=== PATIENT | female | born 1985 | race Caucasian/White ===

== ENCOUNTER 2024-02-17 16:53 | Emergency (ER) | payer OTHER, SELFPAY ==
[2024-02-17] VITALS (10 sets, daily range): BP systolic 116–156; BP diastolic 48–93; PULSE 76–104; RESP 12–22; TEMP 36.3–37.3; O2SAT 93–100; BMI 67.4
--- NOTE | ~2024-02-17 | XR_ITS ---
EXAMINATION: Left knee CLINICAL INFORMATION: Possible dislocation. Pain. COMPARISON: None. TECHNIQUE: 2 views of the left knee FINDINGS: There is one full shaft width anterior displacement of the tibia relative to the femur. No displaced fracture is evident. XR/XR knee LT 2V IMPRESSION: Anterior dislocation of the knee. Electronically signed by: Alfa Zuniga MD 02/17/2024 06:53 PM EDT RP
--- NOTE | ~2024-02-17 | CT_ITS ---
EXAMINATION: CT ANGIOGRAM LEFT LOWER EXTREMITY. CLINICAL INFORMATION: Status post knee dislocation and reduction. COMPARISON: None available. TECHNIQUE: Contiguous axial CT angiography of the left lower extremity obtained after the intravenous administration of 85 mL Omnipaque 350. Sagittal and coronal images also obtained. This CT examination was performed using dose optimization techniques as appropriate, variously including the following: *Automated exposure control *Adjustment of mA and/or kV according to patient size (this includes techniques or standardized protocols for targeted exams where dose is matched to indication/reason for exam; i.e. extremities or head) *Use of iterative reconstruction technique DLP: 980 mGy-cm FINDINGS: Intrapelvic structures are unremarkable. The external iliac arteries are patent. The left femoral artery, deep femoral artery as well as superficial femoral arteries are patent. No flow is demonstrated within the left popliteal artery. There is recanalization of the very distal left popliteal artery and trifurcation vessels extending to the left foot. The right lower extremity arterial system is within normal limits throughout. OSSEOUS STRUCTURES AND SOFT TISSUES: There is depression along the anterior medial femoral condyle associated with some lucencies and small bony densities along the anterior medial femoral condyle. The patella lies laterally within the patellofemoral groove. There is a lucency through the central anterior tibia at the level of the tibial spine. There is a mildly displaced fracture through the tip of the radial head. There is soft tissue swelling about the knee and a moderate knee joint effusion. CT/CT angio LE LT IMPRESSION: 1. Occlusion of the left popliteal artery with recanalization of the very distal popliteal artery and trifurcation vessels extending to the foot. 2. Fracture through the anterior medial femoral condyle, anterior tibia and tip of the radial head. 3. Lateral displacement of the patella. 4. Joint effusion and soft tissue swelling about the knee. Electronically signed by: Ariel Treviño MD 02/18/2024 04:29 AM EDT
--- NOTE | 2024-02-17 17:05 | ED.GENADULT ---
HPI - General Adult General Chief complaint: Fall Stated complaint: Fall, headstrike Time Seen by Provider: 02/17/24 17:04 Source: patient and EMS Mode of arrival: EMS Limitations: no limitations History of Present Illness ED Provider: Patricia Wallace PA-C HPI narrative: Patient is a 38 year old assigned female at with no reported medical history presenting to the emergency department today with left knee pain after a slip and fall. Patient states that she was at work when she slipped and fell on a banana peel and injured her left knee. Patient states that she did bump her head but did not have any loss of consciousness. Patient denies any dizziness, lightheadedness, abdominal pain, nausea, vomiting, fever, chills, blurry vision, double vision, loss of vision, chest pain, difficulty breathing, shortness of breath, back pain, night sweats, pain with urination, increased urinary frequency, increased urinary urgency, blood in her urine or stool, syncope or a near syncopal episode, bowel incontinence, bladder incontinence, or any other complaints at this time. Location: left and lower extremity Relieving factors: immobilization Exacerbating factors: movement Associated symptoms: denies other symptoms Treatments prior to arrival: none Related Data Allergies Allergy/AdvReac Type Severity Reaction Status Date / Time No Known Allergies Allergy Verified 02/17/24 17:06 Review of Systems Constitutional: Constitutional: Reports no additional constitutional complaints, Denies chills, Denies fever(s) and Denies night sweats Eyes: Eyes: Reports no additional eye complaints, Denies blurry vision, Denies change in vision, Denies diplopia, Denies eye discharge, Denies loss of vision and Denies eye pain ENT: Denies dizziness Cardiovascular: Cardiovascular: Reports no additional cardiovascular complaints, Denies chest pain, Denies lightheadedness, Denies Loss of Consciousness and Denies dyspnea Respiratory: Respiratory: Reports no additional respiratory complaints and Denies dyspnea Gastrointestinal: Gastrointestinal: Reports no additional gastrointestinal complaints, Denies abdominal pain, Denies melena, Denies hematochezia, Denies change in bowel habits and Denies change in stool character Genitourinary: Genitourinary: Denies hematuria, Denies urinary frequency, Denies dysuria, Denies urinary incontinence, Denies urinary hesitancy and Denies urinary urgency Musculoskeletal: Musculoskeletal: Reports no additional musculoskeletal complaints, Denies numbness and Denies tingling Comments: left knee pain Neurologic: Denies dizziness, Denies loss of vision, Denies numbness and Denies tingling Psychiatric: Psychiatric: Reports no additional psychiatric complaints Endocrine: Endocrine: Reports no additional endocrine complaints Hematologic/Lymphatic: Hematologic/Lymphatic: Reports no additional hematologic/lymphatic complaints Allergic/Immunologic: Allergic/Immunologic: Reports no additional allergic/immunologic complaints PMFSH Past Medical History Attestation statement: The following information was validated with the patient. Source: old records reviewed and nursing notes reviewed Medical History (Updated 02/18/24 @ 04:59 by Roberto Echeverria MD) Morbid obesity Physical Exam ED Vital Signs: Vital Signs - 24 hr 02/17/24 17:05 02/17/24 17:31 02/17/24 18:04 Temperature 97.7 F 98.1 F Pulse Rate 96 97 Respiratory Rate 18 22 H 18 Blood Pressure 156/48 H 156/48 H Pulse Oximetry 98 100 Oxygen Delivery Method Room Air Room Air 02/17/24 18:33 02/17/24 19:28 02/17/24 19:33 Temperature 99.2 F 97.7 F Pulse Rate 95 100 104 H Respiratory Rate 20 17 18 Blood Pressure 140/80 H 134/78 132/84 Pulse Oximetry 100 98 99 Oxygen Delivery Method Room Air Room Air Room Air 02/17/24 19:38 02/17/24 19:43 02/17/24 20:22 Temperature 97.3 F 98.0 F Pulse Rate 103 H 101 H 92 Respiratory Rate 18 18 12 Blood Pressure 116/87 129/84 142/66 H Pulse Oximetry 99 99 97 Oxygen Delivery Method Room Air Room Air Room Air 02/17/24 22:26 02/18/24 02:50 Temperature 97.9 F 98.5 F Pulse Rate 104 H 74 Respiratory Rate 14 16 Blood Pressure 154/93 H 174/76 H Pulse Oximetry 93 98 Oxygen Delivery Method Room Air Room Air BMI result Body Mass Index 67.4 Const General: cooperative, no acute distress, alert and awake Nutritional Appearance: well nourished Orientation/consciousness: patient oriented x3 Limitations: no limitations HENMT Head: Yes normal to inspection and Yes atraumatic Ears: hearing grossly normal bilaterally and external ears normal General nose exam: Normal external nose present, no nasal discharge noted and no epistaxis Face and sinus: Yes normal facial exam, No abrasion and No laceration Mouth: Normal oral and palatal mucosa present, no drooling and no muffled voice Eyes General: appearance normal, both eyes and all related structures Periorbital: periorbital findings normal Eyelids: Yes eyelids normal Conjunctivae: conjunctivae normal Pupils: Equal, round and reactive pupils present EOM: EOMs intact bilaterally Neck Neck: Yes normal visual inspection, Yes full ROM and Yes no lymphadenopathy Chest Chest palpation & inspection: normal inspection of the chest Resp Effort & Inspection: normal respiratory effort and able to speak in complete sentences GI Inspection: Yes normal to inspection Neuro General: patient oriented x3 and moves all extremities Cranial nerves: Yes Equal, round and reactive pupils present Cognition (Neuro): normal cognition Extrem Other: pain with left knee ROM inability to flex left knee left lower extremity shortened when compared to right General: Yes capillary refill normal Psych Appearance: grossly normal Mental Status: mental status grossly normal Affect: normal affect Attitude: cooperative Thought process: Normal thought process present Thought content: Normal thought content present Insight: Good insight present (Psych) Course Course Course Narrative: Dr. Tucker: -patient was taken to the OR for reduction of a knee dislocation. I spoke with Dr. Jones from Orthopedics, they were unable to get any audible pulses with Doppler. CTA has been ordered. Patient states that she feels much better, has no pain numbness or tingling. -CTA was done, my interpretation: No obvious blockage. However, the radiology report is pending. We have called [facility] requesting to expedite their read. No report yet. -fortunately, patient's leg feels better, no numbness tingling no pain. Also, our techs was able to locate and here pulses with the Doppler. -sign out given to my colleague Dr. Echeverria. Once the radiology report returns, please contact GALI Carpenter from Orthopedics as orthopedics will admit the patient if the CT scan is negative for occlusion -I have personally provided 60 minutes of critical care time. Time includes review of lab data, radiology results, discussion with consultants, and monitoring for potential decompensation. Intervention performed as documented. Reevaluation(s) Reevaluation #1: Dr. Echeverria: received a call from [facility] for CT, there is a popliteal clot with collaterals. Discussed with Dr. Chambers vascular at [facility] will start low dose heparin and transfer. The foot is warm, neurovascularly intact. Will transfer Time: 04:57 Reevaluation #2: Dr. Echeverria: I spent 40 minutes of critical care, with interventions, assessments, speaking to patient, consultants, and family. Time: 04:58 Medications Administered Generic Name Dose Route Start Last Admin Trade Name Freq PRN Reason Stop Dose Admin Heparin Sodium/Sodium Chloride 25,000 unit in 250 mls @ 0 mls/hr 02/18/24 05:00 02/18/24 05:41 Heparin Sodium,Porcine/1/2ns IVCONT 5.28 units/kg/hr .Q0M JUANA 10 mls/hr Administration Protocol Per Protocol Discontinued Medications Generic Name Dose Route Start Last Admin Trade Name Freq PRN Reason Stop Dose Admin Iohexol 85 ml 02/17/24 21:45 02/17/24 21:46 Iohexol 350 Mg/Ml 100 Ml Infus..Btl IV 02/17/24 21:46 85 ml ONCE ONE Administration Morphine Sulfate 4 mg 02/17/24 17:05 02/17/24 18:04 Morphine Sulfate 4 Mg/Ml Cartridge IVPUSH 02/17/24 17:06 4 mg ONCE ONE Administration Protocol Ondansetron HCl 4 mg 02/17/24 17:05 02/17/24 18:04 Ondansetron Hcl 4 Mg/2 Ml Vial IVPUSH 02/17/24 17:06 4 mg ONCE ONE Administration Medical Decision Making Medical Decision Making MDM Narrative: Patient is a 38 year old assigned female at with no reported medical history presenting to the emergency department today with left knee pain. Patient's physical exam was as noted in the physical exam portion of this note. Patient's blood work is pending. Patient's left knee x-ray showed a tibiofemoral dislocation. I explained my physical exam findings as well as all test results to the patient. I answered all questions asked by the patient. I spoke to the orthopedic team who recommended going to the OR for dislocation reduction. Differential Diagnosis Differential Diagnoses: The differential diagnosis associated with the presentation includes L Tibiofemoral dislocation Admission/Observation Consideration of admission/observation: Escalation of care including admission/observation considered Patient to go to the OR for reduction Consult Healthcare Provider Management of the patient was discussed with: Electroneurodiagnostic Technician (spoke with the orthopedic team as noted in the MDM Rationale portion of this note.) Lab Data [facility] Lab Attestation statement: I reviewed the patient's lab results. My interpretation of these results are in the MDM Rationale portion of this note. 02/18/24 05:14 02/17/24 18:09 Labs: Lab Results 02/17/24 02/18/24 Range/Units 18:09 05:14 WBC 13.9 H 12.3 H (4.8-10.8) X10*3/uL RBC 4.49 4.33 (4.20-5.50) X10*6/uL Hgb 12.4 11.9 L (12.0-16.0) g/dl Hct 38.6 36.5 L (37.0-47.0) % MCV 86.0 84.3 (80.0-98.0) fL MCH 27.6 27.5 (27.0-33.0) pg MCHC 32.1 32.6 (31.0-35.0) g/dl RDW 14.7 14.6 (11.0-16.0) % Plt Count 387 331 (160-400) X10*3/uL MPV 10.3 9.3 L (9.4-12.3) fL Immature Gran % (Auto) 0.5 H (0.0-0.4) % Neut % (Auto) 77.6 H (45-73) % Lymph % (Auto) 16.4 L (20-40) % Hand % (Auto) 4.8 (2-11) % Eos % (Auto) 0.3 (0-4) % Baso % (Auto) 0.4 (0-2) % Lymph # (Auto) 2.3 (1.2-4.9) X10*3/uL Hand # (Auto) 0.7 (0.1-1.2) X10*3/uL Eos # (Auto) 0.0 (0.0-0.4) X10*3/uL Baso # (Auto) 0.1 (0.0-0.2) X10*3/uL Abs Immat Gran (auto) 0.07 H (0.00-0.03) X10*3/uL Absolute Neuts (auto) 10.8 H (2.0-8.3) x10*3/uL Absolute Nucleated RBC 0.000 0.000 (0.0-0.012) X10*3/uL Nucleated RBC % (auto) 0.0 0.0 (0.0-0.2) /100WBC PT 12.4 (10.9-12.4) SEC INR 1.1 (0.9-1.1) aPTT Heparin Protocol 30.6 L (53-77.9) SEC Sodium 140 (135-145) mmol/L Potassium 3.8 (3.3-5.1) mmol/L Chloride 106 (96-108) mmol/L Carbon Dioxide 23 (22-29) mmol/L Anion Gap 15 (12-20) BUN 15 (9-16) mg/dL Creatinine 0.94 (0.5-1.4) mg/dL Estim Creat Clear Calc 141.3 Estimated GFR > 60 Random Glucose 148 H (60-115) mg/dL Calcium 9.5 (8.4-10.2) mg/dL Total Bilirubin 0.2 (0.0-1.0) mg/dL AST 32 H (5-31) U/L ALT 38 H (0-31) U/L Alkaline Phosphatase 93 (39-117) U/L Total Protein 7.3 (6.5-8.0) g/dL Albumin 4.1 (3.5-5.0) g/dL Beta HCG, Quant < 2 mIU/mL Blood Type O Positive Antibody Screen NEGATIVE Independent Interpretation I performed an independent interpretation of an: Plain X-Ray Interpretation: My interpretation is in agreement with the radiologist's impression of this imaging study. EXAMINATION: Left knee CLINICAL INFORMATION: Possible dislocation. Pain. COMPARISON: None. TECHNIQUE: 2 views of the left knee FINDINGS: There is one full shaft width anterior displacement of the tibia relative to the femur. No displaced fracture is evident. XR/XR knee LT 2V IMPRESSION: Anterior dislocation of the knee. Electronically signed by: Alfa Zuniga MD 02/17/2024 06:53 PM EDT Dictated By: Alfa Zuniga MD Signed By: Electronically signed by Alfa Zuniga MD 02/17/24 [id number] Radiology Impression Discussion of test interpretation with radiology: I have reviewed the radiologist's reading. Independent Historian Clinical information obtained from an independent historian. History obtained from or confirmed by: EMS (EMS provided additional history and confirmed the history provided by the patient.) Critical Care Time Critical Care Time Critical Care Time: Yes Total Critical Care Time: 54 Attestation: I spent 54 minutes of Critical Care Time with this patient. This does not include time spent on separately reported billable procedures. Discharge Plan Discharge Clinical Impression: Dislocation of tibio-femoral joint, Femoral fracture, Popliteal artery occlusion, left Patient Disposition: Xfer [facility] Transfer Details: vascular surgery needed Interventions: Acute Care Transfer Worksheet (ED) Last Done: 02/18/24 05:52 Discharge Date/Time: 02/18/24 05:59
--- NOTE | 2024-02-17 18:00 | PC.NURSE ---
Taken by and tech to OR
[2024-02-17] MEDS: ondansetron HCL 4 MG/2 ML VIAL IVPUSH (18:04)
[2024-02-17] MEDS: Morphine Sulfate 4 MG/ML CARTRIDGE IVPUSH (18:04)
--- NOTE | 2024-02-17 18:08 | PC.NURSE ---
Pt. medicated per JUL.
[2024-02-17 18:15] LABS: MANUAL DIFF FLAG NO
--- NOTE | 2024-02-17 18:15 | P.CONOP_ITS ---
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 X-rays reveal dislocation of left tibiofemoral joint with associated posterior femur avulsion fracture Patient reports normal sensation to the distal left lower extremity Patient reports diffuse pain throughout the left knee Review of Systems 2 Review of Systems: Yes all other systems are reviewed and are negative [facility] Social History Social History Advance Directives: No Advance Directives Information Provided: No Do you have a plan to hurt others: No Plan Meds Allergies Allergy/AdvReac Type Severity Reaction Status Date / Time No Known Allergies Allergy Verified 02/17/24 17:06 Physical Exam 2 Vital Signs: Vital Signs: Last Vital Signs Temp 98.1 F 02/17/24 17:31 Pulse 97 02/17/24 17:31 Resp 18 02/17/24 18:04 BP 156/48 H 02/17/24 17:31 Pulse Ox 100 02/17/24 17:31 O2 Del Method Room Air 02/17/24 17:31 BMI result Body Mass Index 67.4 Extrem: Other: On inspection, there is no visible deformity of the patient's left knee, however patient's body habitus makes inspection for deformity difficult No edema, erythema, ecchymosis noted No lacerations, abrasions, open areas No evidence of infection Patient reports diffuse tenderness to palpation about the left knee Distal sensation intact Capillary refill brisk Results Labs 02/17/24 18:09 02/17/24 18:09 Labs: All other labs normal. Diagnostic results Knee x-ray: report reviewed and image reviewed (X-rays obtained in the ED today and independently reviewed by me, Jayden Moreno PA-C, demonstrate dislocation of the tibial femoral joint of the left knee, with posterior displacement of the femur. There is also an avulsion fracture off the posterior aspect of the left femur) Assessment and Plan (1) Dislocation of tibio-femoral joint: Status: Acute (2) Femoral fracture: Status: Acute Plan 1. Left tibial femoral dislocation Date of injury 02/17/2024 Reduction attempted in the ED with Dr. Jones, however unsuccessful After consultation with Dr. Beck, it was likely best for the patient and they are brought to the OR so she can be intubated, as she ate a large meal at approximately 14:00 Plan is to bring the patient to the OR as soon as possible for closed reduction of left knee Patient is amenable to this plan Procedures Date of Service Date of Service: 02/17/24
--- NOTE | 2024-02-17 18:33 | HO.ANESPROP2 ---
HPI - Anesthesia Eval Consult details Narrative: Left tibia-femoral joint dislocation PMFSH Active Problems Active Problems: All Active Problems Femoral fracture (Acute) Dislocation of tibio-femoral joint (Acute) Past Medical History Medical History (Updated 02/17/24 @ 18:34 by Ayo Rdo MD) Morbid obesity Family History Family history of problems with anesthesia: No Surgical History History of Problems with Anesthesia: No Social History Social History Advance Directives: No Advance Directives Information Provided: No Do you have a plan to hurt others: No Plan Meds Allergies Allergy/AdvReac Type Severity Reaction Status Date / Time No Known Allergies Allergy Verified 02/17/24 17:06 Exam Height,Weight and Vital Signs: Height 5 ft 6 in Weight 189.5 kg Last Vital Signs Temp 98.1 F 02/17/24 17:31 Pulse 97 02/17/24 17:31 Resp 18 02/17/24 18:04 BP 156/48 H 02/17/24 17:31 Pulse Ox 100 02/17/24 17:31 O2 Del Method Room Air 02/17/24 17:31 Airway Mallampati Class: III TM Dist: >3cm Neck ROM: Full Loose/Missing/Broken Teeth: No Heart: RRR Lungs: CTA Assessment and Plan Assessment Anesthesia Assessment: Anesthesia Plan Discussed and Chart Reviewed Final Anesthetic Review Family History of Problems with Anesthesia: No History of Problems with Anesthesia: No NPO: No ASA Class: III and Emergency Final Preanesthetic Review: No Changes in Pt Med Stat, Meds/Allgs Chart Reviewed, Consent Obtained/Reviewed and Anes Risks/Benef Reviewed Patient Risk: Intermediate Procedure Risk: Low Anesthetic Plan Anesthetic Plan: GA Disposition: Standard PACU
[2024-02-17 18:40] LABS: Alanine Aminotransferase 38 U/L (0-31); Albumin Level 4.1 g/dL (3.5-5.0); Alkaline Phosphatase 93 U/L (39-117); Anion Gap 15 (12-20); Aspartate Amino Transferase 32 U/L (5-31); Bilirubin Total 0.2 mg/dL (0.0-1.0); Blood Urea Nitrogen 15 mg/dL (9-16); Calcium 9.5 mg/dL (8.4-10.2); Carbon Dioxide 23 mmol/L (22-29); Chloride 106 mmol/L (96-108); Creatinine Clr Calc Pharmacy 141.3; Estimated Glomerular Filt Rate > 60; Glucose Random 148 mg/dL (60-115); HCG Quantitative < 2 mIU/mL; Potassium 3.8 mmol/L (3.3-5.1); Sodium 140 mmol/L (135-145); Total Protein 7.3 g/dL (6.5-8.0)
--- NOTE | 2024-02-17 18:41 | MHC.SHP ---
Pre-Procedural Eval Section A - 24 Hr Update-Section A only Date of Service: 02/17/24 The patient is an INPATIENT: No Changes since office visit: No Cold of Flu in the past 2 weeks, No New Medical Problems, No Changes in Medication and No Patient answered all questions The patient has been examined within 24 hours of the surgical procedure. The History & Physical has been completed within 30 days and I have reviewed it.: Yes Section B - Complete if H&P > 30 days Chief Complaint: Fall, headstrike Allergies: Allergies Allergy/AdvReac Type Severity Reaction Status Date / Time No Known Allergies Allergy Verified 02/17/24 17:06 Plan I have reviewed the history and physical and performed a pertinent physical examination on my patient. No changes have occurred unless specified. Time Spent With Patient Time: Total time managing care of this patient today ____ minutes.
--- NOTE | 2024-02-17 19:00 | PC.NURSE ---
Went to OR with OR staff just prior to this RN's shift (19:00). Jaja Moss, electrotherapist aware.
--- NOTE | 2024-02-17 19:26 | PM.OP ---
Brief Operative Note Date of Service: 02/17/24 Pre-op diagnosis: left knee dislocation Post-op diagnosis: same Procedure: closed reduction left knee Surgeon: David Jones MD Anesthesia: GETA Was an Internal Grinder Set Up Operator used for this Procedure?: Yes Internal Grinder Set Up Operator: Jayden Moreno Estimated blood loss (mL): 0 IV fluids (mL): 500 Pathology: none sent Condition: stable Disposition: PACU
--- NOTE | 2024-02-17 20:00 | PC.NURSE ---
Assumed care of pt at this time, per pt she was eaving work and slipped on a banana peel, dislocating her L-knee. Pt went to surgery and had knee placed and immbilizer on. Pt reports she is pretty comfortable at this time. Per Bam from Pacu, faint pedal pulse with doppler good soundin posterior tibial, ortho providers unable to locate pulse so pt will get CTA. Pt in bed comfortable.
--- NOTE | 2024-02-17 20:33 | PC.NURSE ---
Ct unable to do CTA d/t incorrect IV access size. T/w attempted to place new IC access. Unsuccessful house wirer helper aware and will attempt to place IV.
[2024-02-17 21:03] LABS: Basophils Absolute Auto 0.1 X10*3/uL (0.0-0.2); Basophils Percent Auto 0.4 % (0-2); Eosinophils Percent Auto 0.3 % (0-4); Hematocrit 38.6 % (37.0-47.0); Hemoglobin 12.4 g/dl (12.0-16.0); Imm Gran Abs Auto 0.07 X10*3/uL (0.00-0.03); Imm Gran Pct Auto 0.5 % (0.0-0.4); Lymphocytes Absolute Auto 2.3 X10*3/uL (1.2-4.9); Lymphocytes Percent Auto 16.4 % (20-40); Mean Corpuscular HGB Conc 32.1 g/dl (31.0-35.0); Mean Corpuscular Hemoglobin 27.6 pg (27.0-33.0); Mean Platelet Volume 10.3 fL (9.4-12.3); Monocytes Absolute Auto 0.7 X10*3/uL (0.1-1.2); Monocytes Percent Auto 4.8 % (2-11); Neutrophils Absolute Auto 10.8 x10*3/uL (2.0-8.3); Neutrophils Percent Auto 77.6 % (45-73); Platelet Count 387 X10*3/uL (160-400); Red Blood Count 4.49 X10*6/uL (4.20-5.50); Red Cell Distribution Width 14.7 % (11.0-16.0); White Blood Count 13.9 X10*3/uL (4.8-10.8)
[2024-02-17] MEDS: iohexoL 350 MG/ML 100 ML INFUS..BTL 85 ML IV (21:46)
--- NOTE | 2024-02-17 23:17 | MHC.EDTECH ---
This tech took over care of patient at 2300,rounds completed,patient resting quietly,call pérez in reach
--- NOTE | 2024-02-18 01:30 | PC.NURSE ---
This technical document writer assumed care of this Pt at this time.
[2024-02-18 02:50] VITALS: BP 174/76; PULSE 74; RESP 16; TEMP 36.9; O2SAT 98
--- NOTE | 2024-02-18 02:53 | MHC.EDTECH ---
Hourly rounds and vitals completed,BP is elevated 174/76 RN made aware,pillow given,patient has a pure wick in place done by previous shift,patient is clean and dry call pérez in reach
[2024-02-18 05:18] LABS: Hematocrit 36.5 % (37.0-47.0); Hemoglobin 11.9 g/dl (12.0-16.0); Mean Corpuscular HGB Conc 32.6 g/dl (31.0-35.0); Mean Corpuscular Hemoglobin 27.5 pg (27.0-33.0); Mean Corpuscular Volume 84.3 fL (80.0-98.0); Mean Platelet Volume 9.3 fL (9.4-12.3); Platelet Count 331 X10*3/uL (160-400); Red Blood Count 4.33 X10*6/uL (4.20-5.50); Red Cell Distribution Width 14.6 % (11.0-16.0); White Blood Count 12.3 X10*3/uL (4.8-10.8)
[2024-02-18 05:19] VITALS: BMI 67.4
[2024-02-18 05:25] LABS: INTERNATIONAL NORM RATIO 1.1 (0.9-1.1); Prothrombin Time 12.4 SEC (10.9-12.4)
[2024-02-18 05:28] LABS: PTT Heparin Drip 30.6 SEC (53-77.9)
[2024-02-18] MEDS: Heparin Sodium,Porcine/1/2NS 25,000 UNIT/250 ML IV.SOLN 10 UNIT IVCONT (05:41)
[2024-02-18 05:52] VITALS: BP 168/92; PULSE 72; RESP 16; TEMP 36.9; O2SAT 97
--- NOTE | 2024-02-18 05:56 | PC.NURSE ---
Report given to Ankit LEAL in ED. Pt will be transported via ambulance. Pt aware of plan.
--- NOTE | 2024-02-21 06:07 | W.PM.OPN ---
Operative Note Operative Note Date of Service: 02/17/24 Narrative: Date of Service: 02/17/24 Pre-op diagnosis: left knee dislocation Post-op diagnosis: same Procedure: closed reduction left knee Surgeon: David Jones MD Anesthesia: GETA Was an Guest Experience Specialist used for this Procedure?: Yes Guest Experience Specialist: Jayden Moreno Estimated blood loss (mL): 0 IV fluids (mL): 500 Pathology: none sent Condition: stable Disposition: PACU Indications: This is a 38 yo F who presented to the [facility] with a left knee dislocation. She was seen immediately and urgently taken to the operating room for closed reduction. A closed reduction was attempted in the ED but was not possible. Given her body size and NPO status she was deemed high risk for conscious sedation in the ED and intubation was recommended. Pre-operatively I could not find a DP or PT pulse with a doppler. In the operating room a timeout was called and, once she was paralyzed and intubated the closed reduction was performed. I pulled her distal femur cephalad while my production assistant applied traction on the foot and the knee reduced easily. Radiographs confirmed reduction. Again I was unable to find a dopplerable DP or PT pulse and she had cap refill of ~3 sec compared to 1-2 on the right. She was moving her toes and reported intact sensation. She was brought to the recovery room in stable condition. She was placed in a soft knee immobilizer. I spoke with the ED provider to order a stat CT angiogram. This was done.
== END 2024-02-18 05:59 | disposition short-term general hospital (02) ==
LOC: HO.ED 18:09 → HO.SSS 18:16 → HO.ED 23:29 → HO.SSS 02-23 08:49 → HO.ED 02-24 14:29
PROVIDERS: Emergency Medicine; Orthopaedic Surgery; Physician Assistant Medical; Emergency Provider Emergency Medicine; PCP Family Medicine
PROC: (CPT 27552; principal; 2024-02-17 17:00)
DX: S72.92XA Unspecified fracture of left femur, initial encounter for closed fracture (principal); S83.105A Unspecified dislocation of left knee, initial encounter; W01.10XA Fall on same level from slipping, tripping and stumbling with subsequent striking against unspecified object, initial encounter; Y93.9 Activity, unspecified; Y92.9 Unspecified place or not applicable; Y99.0 Civilian activity done for income or pay; I70.202 Unspecified atherosclerosis of native arteries of extremities, left leg; R51.9 Headache, unspecified; R10.2 Pelvic and perineal pain; M25.562 Pain in left knee; Z79.899 Other long term (current) drug therapy
CPT/HCPCS: 27552; 36415; 73560; 73706; 80053; 84702; 85025; 85027; 85610; 85730; 86850; 86900; 86901; 96374; 96375; 99285; J0330; J1100; J1644; J2270; J2405; J2704; J3010

== ENCOUNTER → 2024-02-17 18:13 | Outpatient (BNV) | payer OTHER, SELFPAY | PROVIDERS: Emergency Provider Emergency Medicine; PCP Family Medicine | DX: S83.102A Unspecified subluxation of left knee, initial encounter (principal); S72.92XA Unspecified fracture of left femur, initial encounter for closed fracture | CPT/HCPCS: 27552; 99222 ==